=== PATIENT | male | born 1990 | race Two or more races ===

== ENCOUNTER 2022-09-04 11:30 | Inpatient (IN) | payer SELFPAY ==
[~2022-09-04] VITALS: Ht 175.3 cm; Wt 95.9 kg
[2022-09-04 12:55] LABS: Basophils # (auto) 0.1 10 ^3/uL (0-0.2); Basophils % (auto) 0.5 % (0.0-2.0); Eosinophils # (auto) 0 10 ^3/uL (0-0.8); Eosinophils % (auto) 0.2 % (0.0-7.0); Hematocrit 43.1 % (41.0-53.0); Lymphocytes # (auto) 0.7 10 ^3/uL (0.4-5.4); Lymphocytes % (auto) 4.1 % (10.0-50.0); Mean Corpuscular Hemoglobin 32.4 pg (28.0-32.0); Mean Corpuscular Hgb Conc. 34.8 g/dL (32.0-36.0); Monocytes # (auto) 1.1 10 ^3/uL (0-1.3); Monocytes % (auto) 6.7 % (0.0-12.0); Neutrophils # (auto) 14.2 10 ^3/uL (1.6-8.6); Neutrophils % (auto) 88.5 % (37.0-80.0); Nucleated Red Blood Cells % 0.1 %; Red Blood Cells 4.64 10^6/uL (4.5-5.90); Red Cell Distribution Width 13.2 % (11.8-14.3); White Blood Cell 16.1 10^3/uL (4.4-10.8)
[2022-09-04 13:02] LABS: Albumin 3.8 g/dL (3.4-5.0); Calcium 8.9 mg/dL (8.5-10.1); Potassium 4.2 mmol/L (3.5-5.1)
[2022-09-04 13:06] LABS: BUN/Creatinine Ratio 16.2 (10.0-20.0); Bilirubin, Total 1.3 mg/dL (0.2-1.0); Total Protein 7.1 g/dL (6.4-8.2)
[2022-09-04 13:40] LABS: Urine Bacteria NONE SEEN /hpf (None Seen); Urine Blood Negative /uL (Negative); Urine Mucus FEW (None Seen); Urine Specific Gravity 1.029 (1.001-1.035); Urine WBC 1 /hpf (0 - 3)
[2022-09-04] MEDS ORDERED: metroNIDAZOLE 500MG/100ML 100 ML IV ONE (14:15)
[2022-09-04] MEDS ORDERED: SODIUM CHLORIDE 0.9% 1,000 ML IV ONE ×2 (14:15→19:30)
[2022-09-04] MEDS ORDERED: MORPHINE SULFATE 4 MG/ML SYR/VIAL IV ONE (14:15)
[2022-09-04] MEDS ORDERED: levoFLOXacin 500MG 100 ML IV ONE (14:15)
[2022-09-04] MEDS ORDERED: ONDANSETRON HCL 4 MG/2 ML VIAL IV ONE (14:15)
[2022-09-04] MEDS ORDERED: ONDANSETRON HCL 4 MG/2 ML VIAL IV PRN (19:30)
[2022-09-04] MEDS ORDERED: ACETAMINOPHEN 325 MG TAB PO PRN (22:00)
[2022-09-04] MEDS: MORPHINE SULFATE INJ 2 MG/ml SYRG IV PRN (22:07)
[2022-09-04 23:55] VITALS: BP 117/68
[2022-09-05] MEDS: PIPERACILLIN-TAZOB 3.375GM 100 ML IV SCH ×4 (00:01→21:01)
[2022-09-05] MEDS: SODIUM CHLORIDE 0.9% 1,000 ML IV SCH ×4 (03:50→21:01)
[2022-09-05 05:00] VITALS: BP 104/69
[2022-09-05 05:57] LABS: Basophils # (auto) 0 10 ^3/uL (0-0.2); Basophils % (auto) 0.3 % (0.0-2.0); Eosinophils # (auto) 0.1 10 ^3/uL (0-0.8); Eosinophils % (auto) 1.1 % (0.0-7.0); Hemoglobin 12.2 g/dL (13.5-17.5); Lymphocytes # (auto) 1.1 10 ^3/uL (0.4-5.4); Lymphocytes % (auto) 9.6 % (10.0-50.0); Mean Corpuscular Hemoglobin 32.8 pg (28.0-32.0); Mean Corpuscular Hgb Conc. 33.8 g/dL (32.0-36.0); Mean Corpuscular Volume 96.9 fL (80.0-100.0); Monocytes # (auto) 0.7 10 ^3/uL (0-1.3); Monocytes % (auto) 5.9 % (0.0-12.0); Neutrophils # (auto) 9.7 10 ^3/uL (1.6-8.6); Neutrophils % (auto) 83.1 % (37.0-80.0); Nucleated Red Blood Cells % 0.1 %; Red Blood Cells 3.72 10^6/uL (4.5-5.90); White Blood Cell 11.7 10^3/uL (4.4-10.8)
[2022-09-05 06:13] LABS: Potassium 3.9 mmol/L (3.5-5.1)
[2022-09-05 06:20] LABS: Albumin 2.7 g/dL (3.4-5.0); BUN/Creatinine Ratio 16.9 (10.0-20.0); Calcium 7.7 mg/dL (8.5-10.1); Total Protein 6.2 g/dL (6.4-8.2)
[2022-09-05 08:00] VITALS: BP 107/67
[2022-09-05 09:00] VITALS: BP 107/67
[2022-09-05] MEDS: MORPHINE SULFATE INJ 2 MG/ml SYRG IV PRN (09:27)
[2022-09-05] MEDS: PANTOPRAZOLE 40 MG/10 ML VIAL INJ IV SCH (09:27)
[2022-09-05 13:00] VITALS: BP 108/71
[2022-09-05 17:00] VITALS: BP 106/67
[2022-09-05] MEDS ORDERED: CLINIMIX PER PHARMACY 0 ML IV SCH (20:15)
[2022-09-05 22:00] VITALS: BP 114/77
[2022-09-06] MEDS: SODIUM CHLORIDE 0.9% 1,000 ML IV SCH ×3 (02:50→12:00)
[2022-09-06 05:00] VITALS: BP 127/86
[2022-09-06] MEDS: PIPERACILLIN-TAZOB 3.375GM 100 ML IV SCH ×3 (05:18→21:42)
[2022-09-06 07:58] LABS: Albumin 2.8 g/dL (3.4-5.0); Calcium 8.6 mg/dL (8.5-10.1); Magnesium 2.4 mg/dL (1.6-2.6); Potassium 4.1 mmol/L (3.5-5.1)
[2022-09-06 08:01] LABS: BUN/Creatinine Ratio 18.2 (10.0-20.0); Bilirubin, Total 0.9 mg/dL (0.2-1.0); Phosphorus 3.2 mg/dL (2.5-4.90); Total Protein 6.7 g/dL (6.4-8.2)
[2022-09-06 09:00] VITALS: BP 112/77
[2022-09-06] MEDS: PANTOPRAZOLE 40 MG/10 ML VIAL INJ IV SCH (09:59)
[2022-09-06] MEDS ORDERED: AMINO ACID INFUSION IN D10W 1,000 ML IV NR ×2 (10:00→20:00)
[2022-09-06 13:00] VITALS: BP 129/82
[2022-09-06 16:07] LABS: Hepatitis C Antibody Negative (Negative)
[2022-09-06 17:00] VITALS: BP 129/77
[2022-09-06] MEDS ORDERED: DEXTROSE (50%) 50ML SYRG IV SCH (20:00)
[2022-09-06 22:00] VITALS: BP 127/76
[2022-09-07] MEDS: ACCU-CHEK COMFORT CURVE STRIP VI SCH ×5 (00:04→23:49)
[2022-09-07] MEDS ORDERED: AMINO ACID INFUSION IN D10W 1,000 ML IV NR (02:00)
[2022-09-07] MEDS: PIPERACILLIN-TAZOB 3.375GM 100 ML IV SCH ×3 (05:06→22:09)
[2022-09-07] MEDS: InsuLIN REG 1unit/0.01ml Soln (100units/ml) SC SCH ×5 (05:11→23:49)
[2022-09-07] MEDS: SODIUM CHLORIDE 0.9% 1,000 ML IV SCH ×3 (05:50→22:30)
[2022-09-07 07:05] LABS: Albumin 2.7 g/dL (3.4-5.0); Calcium 8.3 mg/dL (8.5-10.1); Magnesium 1.9 mg/dL (1.6-2.6); Potassium 3.5 mmol/L (3.5-5.1)
[2022-09-07 07:07] LABS: BUN/Creatinine Ratio 20.4 (10.0-20.0)
[2022-09-07 07:10] LABS: Bilirubin, Total 0.6 mg/dL (0.2-1.0); Phosphorus 3.9 mg/dL (2.5-4.90); Total Protein 6.4 g/dL (6.4-8.2)
[2022-09-07 08:00] VITALS: BP 107/72
[2022-09-07] MEDS: PANTOPRAZOLE 40 MG/10 ML VIAL INJ IV SCH (09:50)
[2022-09-07] MEDS ORDERED: POTASSIUM CHL 20MEQ/100ML 100 ML IV ONE (12:30)
[2022-09-07 12:46] VITALS: BP 127/82
[2022-09-07] MEDS: AMINO ACID INFUSION IN D10W 1,000 ML IV NR (13:26)
[2022-09-07 22:00] VITALS: BP 136/82
[2022-09-08 04:55] VITALS: BP 122/76
[2022-09-08] MEDS: InsuLIN REG 1unit/0.01ml Soln (100units/ml) SC SCH ×3 (06:00→18:00)
[2022-09-08] MEDS: PIPERACILLIN-TAZOB 3.375GM 100 ML IV SCH ×3 (06:17→22:03)
[2022-09-08] MEDS: ACCU-CHEK COMFORT CURVE STRIP VI SCH ×3 (06:17→18:42)
[2022-09-08 06:20] LABS: Potassium 3.4 mmol/L (3.5-5.1)
[2022-09-08 06:30] LABS: Albumin 2.7 g/dL (3.4-5.0); BUN/Creatinine Ratio 13.7 (10.0-20.0); Calcium 8.4 mg/dL (8.5-10.1); Magnesium 2.2 mg/dL (1.6-2.6); Phosphorus 4.2 mg/dL (2.5-4.90)
[2022-09-08] MEDS: SODIUM CHLORIDE 0.9% 1,000 ML IV SCH ×3 (06:42→23:30)
[2022-09-08 08:00] VITALS: BP 120/79
[2022-09-08 09:00] VITALS: BP 120/79
[2022-09-08] MEDS: PANTOPRAZOLE 40 MG/10 ML VIAL INJ IV SCH (09:24)
[2022-09-08] MEDS ORDERED: POTASSIUM CHL 20MEQ/100ML 100 ML IV ONE (11:15)
[2022-09-08 13:00] VITALS: BP 131/89
[2022-09-08] MEDS: AMINO ACID INFUSION IN D10W 1,000 ML IV NR (13:30)
[2022-09-08 16:31] VITALS: BP 140/99
[2022-09-08 22:00] VITALS: BP 132/91
[2022-09-09 05:00] VITALS: BP 108/70
[2022-09-09] MEDS: InsuLIN REG 1unit/0.01ml Soln (100units/ml) SC SCH ×4 (06:00→17:34)
[2022-09-09] MEDS: ACCU-CHEK COMFORT CURVE STRIP VI SCH ×4 (06:00→17:34)
[2022-09-09] MEDS: PIPERACILLIN-TAZOB 3.375GM 100 ML IV SCH ×3 (06:10→21:59)
[2022-09-09 06:45] LABS: Basophils # (auto) 0.1 10 ^3/uL (0-0.2); Basophils % (auto) 0.9 % (0.0-2.0); Eosinophils # (auto) 0.3 10 ^3/uL (0-0.8); Eosinophils % (auto) 5.3 % (0.0-7.0); Hematocrit 38.7 % (41.0-53.0); Hemoglobin 13.3 g/dL (13.5-17.5); Lymphocytes # (auto) 1.3 10 ^3/uL (0.4-5.4); Lymphocytes % (auto) 23.1 % (10.0-50.0); Mean Corpuscular Hemoglobin 32.6 pg (28.0-32.0); Mean Corpuscular Hgb Conc. 34.4 g/dL (32.0-36.0); Mean Corpuscular Volume 94.8 fL (80.0-100.0); Monocytes # (auto) 0.7 10 ^3/uL (0-1.3); Monocytes % (auto) 11.8 % (0.0-12.0); Neutrophils # (auto) 3.4 10 ^3/uL (1.6-8.6); Neutrophils % (auto) 58.9 % (37.0-80.0); Nucleated Red Blood Cells % 0.1 %; Red Blood Cells 4.08 10^6/uL (4.5-5.90); Red Cell Distribution Width 12.5 % (11.8-14.3); White Blood Cell 5.8 10^3/uL (4.4-10.8)
[2022-09-09 07:27] LABS: Albumin 2.7 g/dL (3.4-5.0); Calcium 8.5 mg/dL (8.5-10.1); Magnesium 2.1 mg/dL (1.6-2.6); Potassium 3.6 mmol/L (3.5-5.1)
[2022-09-09 07:29] LABS: BUN/Creatinine Ratio 12.5 (10.0-20.0); Phosphorus 4.6 mg/dL (2.5-4.90)
[2022-09-09] MEDS: SODIUM CHLORIDE 0.9% 1,000 ML IV SCH ×2 (07:50→16:10)
[2022-09-09 08:00] VITALS: BP_SYST 122; BP_SYST 124; BP_DIAS 70; BP_DIAS 75
[2022-09-09] MEDS: PANTOPRAZOLE 40 MG/10 ML VIAL INJ IV SCH (09:51)
[2022-09-09 12:00] VITALS: BP 128/100
[2022-09-09] MEDS ORDERED: GASTROGRAFIN 30 ML SOL ONE (13:17)
[2022-09-09] MEDS: AMINO ACID INFUSION IN D10W 1,000 ML IV NR (14:13)
[2022-09-09] MEDS ORDERED: IOHEXOL 300 MG/ML 100ML BOTTLE IJ ONE (14:44)
[2022-09-09 16:00] VITALS: BP 143/83
[2022-09-09 22:00] VITALS: BP 143/78
[2022-09-10] MEDS: SODIUM CHLORIDE 0.9% 1,000 ML IV SCH ×3 (00:44→17:04)
[2022-09-10 05:00] VITALS: BP 111/73
[2022-09-10] MEDS: PIPERACILLIN-TAZOB 3.375GM 100 ML IV SCH ×4 (06:00→21:40)
[2022-09-10] MEDS: InsuLIN REG 1unit/0.01ml Soln (100units/ml) SC SCH ×4 (06:00→18:00)
[2022-09-10] MEDS: ACCU-CHEK COMFORT CURVE STRIP VI SCH ×4 (06:24→18:10)
[2022-09-10 07:46] LABS: Calcium 8.9 mg/dL (8.5-10.1); Potassium 3.5 mmol/L (3.5-5.1)
[2022-09-10 07:49] LABS: Albumin 3.1 g/dL (3.4-5.0); BUN/Creatinine Ratio 10.8 (10.0-20.0); Magnesium 2.2 mg/dL (1.6-2.6); Phosphorus 4.6 mg/dL (2.5-4.90)
[2022-09-10 08:00] VITALS: BP 121/79
[2022-09-10] MEDS: PANTOPRAZOLE 40 MG/10 ML VIAL INJ IV SCH (11:09)
[2022-09-10 12:00] VITALS: BP 131/82
[2022-09-10] MEDS: AMINO ACID INFUSION IN D10W 1,000 ML IV NR ×3 (13:27→21:41)
[2022-09-10 16:00] VITALS: BP 130/82
[2022-09-10 22:00] VITALS: BP 118/80
[2022-09-11] VITALS (7 sets, daily range): BP systolic 109–148; BP diastolic 70–87
[2022-09-11] MEDS: ACCU-CHEK COMFORT CURVE STRIP VI SCH ×3 (00:17→18:17)
[2022-09-11] MEDS: SODIUM CHLORIDE 0.9% 1,000 ML IV SCH ×3 (01:20→18:10)
[2022-09-11] MEDS: PIPERACILLIN-TAZOB 3.375GM 100 ML IV SCH ×3 (05:46→23:17)
[2022-09-11 07:22] LABS: Albumin 2.9 g/dL (3.4-5.0); BUN/Creatinine Ratio 11.1 (10.0-20.0); Calcium 8.5 mg/dL (8.5-10.1); Magnesium 2.2 mg/dL (1.6-2.6); Phosphorus 3.9 mg/dL (2.5-4.90); Potassium 3.7 mmol/L (3.5-5.1)
[2022-09-11] MEDS: PANTOPRAZOLE 40 MG/10 ML VIAL INJ IV SCH (10:15)
[2022-09-11] MEDS: InsuLIN REG 1unit/0.01ml Soln (100units/ml) SC SCH ×3 (12:00→18:00)
[2022-09-11] MEDS: AMINO ACID INFUSION IN D10W 1,000 ML IV NR (20:17)
[2022-09-12] VITALS (7 sets, daily range): BP systolic 114–128; BP diastolic 70–83
[2022-09-12] MEDS: ACCU-CHEK COMFORT CURVE STRIP VI SCH ×4 (00:07→16:55)
[2022-09-12] MEDS: PIPERACILLIN-TAZOB 3.375GM 100 ML IV SCH ×3 (05:31→22:15)
[2022-09-12] MEDS: InsuLIN REG 1unit/0.01ml Soln (100units/ml) SC SCH ×4 (05:47→17:54)
[2022-09-12 05:49] LABS: Basophils # (auto) 0.1 10 ^3/uL (0-0.2); Eosinophils # (auto) 0.3 10 ^3/uL (0-0.8); Eosinophils % (auto) 4.9 % (0.0-7.0); Hematocrit 40.4 % (41.0-53.0); Lymphocytes # (auto) 1.4 10 ^3/uL (0.4-5.4); Lymphocytes % (auto) 25.4 % (10.0-50.0); Mean Corpuscular Hemoglobin 32.6 pg (28.0-32.0); Mean Corpuscular Hgb Conc. 34.7 g/dL (32.0-36.0); Mean Corpuscular Volume 93.9 fL (80.0-100.0); Monocytes # (auto) 0.7 10 ^3/uL (0-1.3); Monocytes % (auto) 12.6 % (0.0-12.0); Neutrophils # (auto) 3.1 10 ^3/uL (1.6-8.6); Neutrophils % (auto) 56.1 % (37.0-80.0); Nucleated Red Blood Cells % 0.1 %; Red Cell Distribution Width 12.6 % (11.8-14.3); White Blood Cell 5.5 10^3/uL (4.4-10.8)
[2022-09-12] MEDS: SODIUM CHLORIDE 0.9% 1,000 ML IV SCH ×3 (05:49→22:16)
[2022-09-12 06:28] LABS: BUN/Creatinine Ratio 7.8 (10.0-20.0); Calcium 8.5 mg/dL (8.5-10.1); Magnesium 2.3 mg/dL (1.6-2.6); Potassium 3.6 mmol/L (3.5-5.1)
[2022-09-12] MEDS: PANTOPRAZOLE 40 MG/10 ML VIAL INJ IV SCH (09:29)
[2022-09-12] MEDS: AMINO ACID INFUSION IN D10W 1,000 ML IV NR (19:49)
[2022-09-13] VITALS (7 sets, daily range): BP systolic 105–132; BP diastolic 70–86
[2022-09-13] MEDS: SODIUM CHLORIDE 0.9% 1,000 ML IV SCH ×4 (03:30→20:10)
[2022-09-13] MEDS: PIPERACILLIN-TAZOB 3.375GM 100 ML IV SCH ×3 (05:31→21:31)
[2022-09-13] MEDS: ACCU-CHEK COMFORT CURVE STRIP VI SCH ×4 (05:32→18:01)
[2022-09-13] MEDS: InsuLIN REG 1unit/0.01ml Soln (100units/ml) SC SCH ×4 (05:32→18:00)
[2022-09-13 07:04] LABS: Albumin 2.9 g/dL (3.4-5.0); Calcium 8.7 mg/dL (8.5-10.1); Magnesium 2.2 mg/dL (1.6-2.6); Potassium 3.8 mmol/L (3.5-5.1)
[2022-09-13 07:05] LABS: BUN/Creatinine Ratio 9.4 (10.0-20.0); Phosphorus 3.9 mg/dL (2.5-4.90)
[2022-09-13] MEDS: PANTOPRAZOLE 40 MG/10 ML VIAL INJ IV SCH (09:05)
[2022-09-14] MEDS: SODIUM CHLORIDE 0.9% 1,000 ML IV SCH (04:30)
[2022-09-14] MEDS: PIPERACILLIN-TAZOB 3.375GM 100 ML IV SCH (05:32)
[2022-09-14] MEDS: ACCU-CHEK COMFORT CURVE STRIP VI SCH ×2 (05:33)
[2022-09-14] MEDS: InsuLIN REG 1unit/0.01ml Soln (100units/ml) SC SCH ×2 (05:33)
[2022-09-14 05:47] VITALS: BP 112/71
[2022-09-14 09:00] VITALS: BP 132/66
[2022-09-14] MEDS: PANTOPRAZOLE 40 MG/10 ML VIAL INJ IV SCH (09:36)
[2022-09-14] MEDS ORDERED: DOCU-94 PO (11:10)
[2022-09-14] MEDS ORDERED: PANT40T PO (11:10)
[2022-09-14] MEDS ORDERED: LEVO500T31 PO (11:10)
[2022-09-14] MEDS ORDERED: METR500T PO (11:10)
== END 2022-09-14 13:30 | disposition home or self-care (01) | DRG 392 ==
LOC: ER 11:30 → OVERFLOW 19:20 → TELE-WESTW 22:44
PROVIDERS: ADMIT Nurse Practitioner Family; ATTEND Family Medicine
PROC: 05HC33Z Insertion of Infusion Device into Left Basilic Vein, Percutaneous Approach (ICD-10-PCS; principal; 2022-09-10)
PROC: B54NZZA Ultrasonography of Left Upper Extremity Veins, Guidance (ICD-10-PCS; 2022-09-10)
DX: K57.20 Diverticulitis of large intestine with perforation and abscess without bleeding (principal); E86.0 Dehydration; Z20.822 Contact with and (suspected) exposure to COVID-19; Z82.49 Family history of ischemic heart disease and other diseases of the circulatory system; Z83.3 Family history of diabetes mellitus
CPT/HCPCS: 36415; 71045; 74176; 74177; 80048; 80053; 80069; 81001; 82150; 82962; 83690; 83735; 84100; 84478; 85025; 86803; 87040; 87340; 87426; 96365; 96368; 96375; 96376; C9113; G0378; J1956; J2405; J2543; J3480; J3490